=== PATIENT | male | born 1980 | race Caucasian/White ===

== ENCOUNTER 2020-05-24 00:33 | Inpatient (IN) | payer OTHER ==
[2020-05-24 01:36] VITALS: BMI 34.4
[2020-05-24] MEDS ORDERED: ACETAMINOPHEN 1000 MG/100 ML BAG IVPB ONE (01:39)
[2020-05-24] MEDS ORDERED: LACTATED RINGERS SOLUTION 1000 ML INFUS.BAG IV ONE ×2 (01:39→05:12)
[2020-05-24] MEDS ORDERED: ACETAMINOPHEN INJECTION 100 ML IVPB ONE (01:47)
[2020-05-24 01:51] LABS: BASO % 0.4 % (0-2.0); HEMATOCRIT 43.1 % (35.4-49); HEMOGLOBIN 14.8 GM/dL (11.7-16.9); LYMPH % 9.4 % (8-40); MCH 30.8 pg (25.7-33.7); MCHC 34.3 g/dl (32.0-35.9); MEAN CELL VOLUME 89.9 fl (80-96); MONO % 7.4 % (3.8-10.2); NEUT % 81.8 % (42.8-82.8); PLATELET COUNT 211 K/MM3 (134-434); RBC 4.79 M/mm3 (4.00-5.60); RDW 12.9 % (11.9-15.9); WHITE BLOOD COUNT 15.6 K/mm3 (4.0-10.0)
[2020-05-24 02:13] LABS: CALCIUM 8.7 mg/dL (8.5-10.1)
[2020-05-24 02:14] LABS: BLOOD UREA NITROGEN 18.4 mg/dL (7-18)
[2020-05-24 02:16] LABS: CREATININE 0.9 mg/dL (0.55-1.3)
[2020-05-24 02:18] LABS: BILIRUBIN,TOTAL 0.3 mg/dL (0.2-1); TOT PROT 7.8 g/dl (6.4-8.2)
[2020-05-24] MEDS ORDERED: CEFOXITIN SODIUM 1 GM in DEXTROSE 5%-WATER - 100 ML IVPB ONE (05:34)
[2020-05-24] MEDS ORDERED: GABAPENTIN 100 MG CAPSULE ONE (05:51)
[2020-05-24] MEDS ORDERED: LACTATED RINGERS SOLUTION 1,000 ML IV SCH ×3 (06:00→11:00)
[2020-05-24 06:54] LABS: INR 1.04 (0.83-1.09); PROTHROMBIN TIME (PATIENT) 12.6 SEC (9.7-13.0)
[2020-05-24 06:57] LABS: ACTIVATED PTT 29.9 SECONDS (25.2-36.5)
[2020-05-24] MEDS ORDERED: fentaNYL CITRATE 250 MCG/5 ML VIAL ONE (08:28)
[2020-05-24] MEDS ORDERED: PROPOFOL 20 ML ONE (08:28)
[2020-05-24] MEDS ORDERED: MIDAZOLAM HCL 2 MG/2 ML SINGLE DOSE VIAL ONE (08:28)
[2020-05-24] MEDS ORDERED: LIDOCAINE HCL/PF 2% SDV 5ML VIAL ONE (08:28)
[2020-05-24] MEDS ORDERED: BUPIVACAINE HCL/PF 0.75% 10 ML VIAL ONE (09:04)
[2020-05-24] MEDS ORDERED: BUPIVACAINE HCL/PF 0.5% (5MG/ML) 10 ML VIAL IJ ONE (09:34)
[2020-05-24] MEDS ORDERED: GLYCOPYRROLATE 0.2 MG/1 ML VIAL ONE (10:13)
[2020-05-24] MEDS ORDERED: NEOSTIGMINE METHYLSULFATE 0.5 MG/ML - 10 ML MDV ONE (10:13)
[2020-05-24] MEDS ORDERED: ONDANSETRON 4 MG/2 ML VIAL IVPUSH PRN (10:51)
[2020-05-24] MEDS ORDERED: PROMETHAZINE HCL 25 MG/1 ML VIAL IVPUSH PRN (10:51)
[2020-05-24] MEDS: CEFOXITIN SODIUM 1 GM in DEXTROSE 5%-WATER - 100 ML IVPB SCH ×4 (15:15→21:02)
[2020-05-24] MEDS ORDERED: cefOXitin SODIUM 1 GM VIAL (RESTRICTED TO ID) IVPB ONE (15:28)
[2020-05-24] MEDS: oxyCODONE HCL 5 MG TABLET PO PRN (20:15)
[2020-05-25] MEDS ORDERED: PT OWN MED DRAWER 7, Y5N ONE ×3 (00:17→16:16)
[2020-05-25 06:25] VITALS: TEMP 98.2
[2020-05-25 08:24] LABS: BASO % 0.2 % (0-2.0); EOS % 0.1 % (0-4.5); HEMATOCRIT 41.6 % (35.4-49); HEMOGLOBIN 14.4 GM/dL (11.7-16.9); LYMPH % 12.8 % (8-40); MCH 31.4 pg (25.7-33.7); MCHC 34.7 g/dl (32.0-35.9); MEAN CELL VOLUME 90.5 fl (80-96); MEAN PLT VOLUME 8.9 fl (7.5-11.1); MONO % 9.7 % (3.8-10.2); NEUT % 77.2 % (42.8-82.8); PLATELET COUNT 210 K/MM3 (134-434); RBC 4.59 M/mm3 (4.00-5.60); RDW 13.5 % (11.9-15.9); WHITE BLOOD COUNT 10.5 K/mm3 (4.0-10.0)
[2020-05-25 08:58] LABS: CALCIUM 8.8 mg/dL (8.5-10.1)
[2020-05-25 08:59] LABS: BLOOD UREA NITROGEN 10.3 mg/dL (7-18)
[2020-05-25 09:02] LABS: CREATININE 0.8 mg/dL (0.55-1.3)
[2020-05-25] MEDS: CEFOXITIN SODIUM 1 GM in DEXTROSE 5%-WATER - 100 ML IVPB SCH (09:09)
[2020-05-25 12:34] VITALS: BP 106/67; PULSE 80
[2020-05-25] MEDS: oxyCODONE HCL 5 MG TABLET PO PRN (12:39)
== END 2020-05-25 17:02 | disposition home or self-care (01) | DRG 225 ==
LOC: JER 00:33 → JERBED 05:11 → J4S 18:00
PROVIDERS: ADMIT Hospitalist; ATTEND Family Medicine
PROC: 0DTJ4ZZ Resection of Appendix, Percutaneous Endoscopic Approach (ICD-10-PCS; principal; 2020-05-24)
DX: K35.80 Unspecified acute appendicitis (principal); R10.31 Right lower quadrant pain; E66.9 Obesity, unspecified; Z68.34 Body mass index [BMI] 34.0-34.9, adult; E78.5 Hyperlipidemia, unspecified
CPT/HCPCS: 36415; 71046-TC-FY; 74177-TC; 80048; 80053; 83690; 85025; 85610; 85730; 86850; 86900; 86901; 88304-TC; 93005; 93010; 94760; 99285-25; C9803; J0131; Q9967; U0003